=== PATIENT | male | born 1980 | race Caucasian/White ===

== ENCOUNTER 2022-03-05 15:19 | Emergency (ER) | payer MEDICARE, SELFPAY ==
--- NOTE | ~2022-03-05 | XR_ITS ---
EXAMINATION: XR chest 2V 03/05/2022 16:17 INDICATION: Cough and weakness PROCEDURE: 2 view chest COMPARISON: 08/28/2014 FINDINGS: The lungs are clear. The cardiomediastinal silhouette is within normal limits. There are no pleural effusions. There is no pneumothorax suspected. IMPRESSION: 1: NO ACUTE CARDIOPULMONARY DISEASE. Reviewed, dictated and finalized at location A. [facility]
[2022-03-05 15:19] VITALS: BP 128/98; PULSE 86; RESP 18; TEMP 36.6; O2SAT 100
[2022-03-05] MEDS: ONDANSETRON INJ 4 MG/2 ML VIAL IV PUSH (15:47)
[2022-03-05] MEDS: SODIUM CHLORIDE 0.9% IV 1,000 ML 999 ML IV CONT (15:47)
--- NOTE | 2022-03-05 15:55 | ECG_ITS ---
Measurements Intervals [place] Rate: 70 P: 55 [place]: 152 QRS: 20 QRSD: 98 T: 25 QT: 383 QTc: 415 Interpretive Statements SINUS RHYTHM DELAYED PRECORDIAL R/S TRANSITION LOW QRS VOLTAGE IN PRECORDIAL LEADS BASELINE ARTIFACT- I, II, III, AVR BORDERLINE ECG NO PREVIOUS ECG AVAILABLE FOR COMPARISON Electronically Signed On 03-05-2022 20:22:39 BLOOD DONOR RECRUITER SUPERVISOR by Marques Barahona D.O.
[2022-03-05 15:57] LABS: Basophils Absolute Auto 0.1 K/mm3 (0.0-0.1); Basophils Percent Auto 0.5 % (0.2-1.2); Eosinophils Absolute Auto 0.2 K/mm3 (0-0.3); Eosinophils Percent Auto 1.1 % (0-4.4); Hematocrit 47.3 % (42.0-52.0); Hemoglobin 15.8 g/dL (14.0-18.0); Immature Granulocyte Absolute 0.06 K/mm3 (0.00-0.031); Immature Granulocyte Percent A 0.4 % (0-0.5); Lymphocytes Absolute Auto 0.86 K/mm3 (0.9-3.2); Lymphocytes Percent Auto 6.2 % (18.3-44.2); Mean Corpuscular HGB Conc 33.4 g/dl (32-36); Mean Corpuscular Hemoglobin 27.3 pg (26-34); Mean Corpuscular Volume 81.7 fl (80-100); Monocytes Absolute Auto 0.7 K/mm3 (0.1-0.6); Neutrophils Percent Auto 86.8 % (45.5-73.1); Platelet Count Result 253 k/mm3 (150-375); Red Blood Count 5.79 M/mm3 (4.6-6.20); Red Cell Distribution Width 13.9 % (11.5-14.5); White Blood Count 13.8 K/mm3 (4.5-10.0)
--- NOTE | 2022-03-05 15:58 | ED.NAVMDI ---
HPI - Nausea/Vomiting/Diarrhea General Chief complaint: Nausea/Vomiting/Diarrhea Stated complaint: flu sx Time Seen by Provider: 03/05/22 15:25 History of Present Illness HPI Narrative: 42 y/o M reports for lightheadedness x1 day, diarrhea 5 days ago, and cough for 1 week. Pt reports subjective fevers. States he went to a local urgent care earlier today to get evaluated, and while standing for the CXR, he became lightheaded and had to sit on the floor. Pt reports urgent care advised him to come to the ED. States his COVID and flu tests were negative at urgent care. States he has not had diarrhea in 4 days. Denies abdominal pain, CP, urinary complaints. Related Data Allergies Allergy/AdvReac Type Severity Reaction Status Date / Time cephalexin Allergy Severe Rash Verified 03/05/22 15:48 Course Vital Signs Vital signs: Vital Signs Temperature 97.8 F 03/05/22 15:19 Pulse Rate 86 03/05/22 15:19 Respiratory Rate 18 03/05/22 15:19 Blood Pressure 128/98 H 03/05/22 15:19 Pulse Oximetry 100 03/05/22 15:19 Oxygen Delivery Room Air 03/05/22 15:19 Temperature 97.8 F 03/05/22 15:19 Pulse Rate 86 03/05/22 15:19 Respiratory Rate 18 03/05/22 15:19 Blood Pressure 128/98 H 03/05/22 15:19 Pulse Oximetry 100 03/05/22 15:19 Oxygen Delivery Room Air 03/05/22 15:19 MDM - Nausea/Vomiting/Diarrhea Lab Data 03/05/22 15:49 03/05/22 15:49 Labs: Lab Results 03/05/22 03/05/22 Range/Units 15:49 15:49 WBC Pending RBC Pending Hgb Pending Hct Pending MCV Pending MCH Pending MCHC Pending RDW Pending Plt Count Pending MPV Pending Immature Gran % (Auto) Pending Neut % (Auto) Pending Lymph % (Auto) Pending [place] % (Auto) Pending Eos % (Auto) Pending Baso % (Auto) Pending Lymph # (Auto) Pending [place] # (Auto) Pending Eos # (Auto) Pending Baso # (Auto) Pending Abs Immat Gran (auto) Pending Absolute Neuts (auto) Pending Absolute Nucleated RBC Pending Nucleated RBC % Pending Sodium Pending Potassium Pending Chloride Pending Carbon Dioxide Pending Anion Gap Pending BUN Pending Creatinine Pending Estim Creat Clear Calc Pending Estimated GFR Pending Glucose Pending Calcium Pending Total Bilirubin Pending AST Pending ALT Pending Alkaline Phosphatase Pending Total Protein Pending Albumin Pending Lipase Pending Discharge Plan Discharge Follow-up/Referrals: PHYSICIAN,COMMERCIAL COLLECTOR [Primary Care Provider] -
[2022-03-05 16:04] LABS: Alanine Aminotransferase 30 U/L (6-50); Albumin Level 4.1 g/dL (3.5-5.1); Alkaline Phosphatase 79 U/L (38-126); Anion Gap 7 mmol/L (8-16); Aspartate Amino Transferase 22 U/L (17-59); Bilirubin,Total 0.6 mg/dL (0.2-1.3); Blood Urea Nitrogen 17 mg/dL (9-20); Calcium 8.3 mg/dL (8.4-10.2); Carbon Dioxide 27 mmol/L (22-30); Chloride 102 mmol/L (98-107); Estimated CRCL calculation 79 ml/min; Estimated Glomerular Filt Rate > 60; Glucose 134 mg/dL (65-110); Lipase 120 U/L (23-300); Potassium 4.5 mmol/L (3.4-5.0); Sodium 136 mmol/L (137-145)
--- NOTE | 2022-03-05 17:49 | ED.NAVMDI ---
HPI - Nausea/Vomiting/Diarrhea General Chief complaint: Nausea/Vomiting/Diarrhea Stated complaint: flu sx Time Seen by Provider: 03/05/22 15:25 History of Present Illness HPI Narrative: 42-year-old male presents to the emergency room today for complaints of flulike symptoms for the past week. He has had pretty significant cough and chest congestion. He reports feeling very weak and fatigued over the past week. He went to an urgent care today and when he was in x-ray he started to get very lightheaded and lowered himself to the floor. He did not pass out all the way. He had diarrhea at the beginning of the illness last week. He has not had any vomiting but he did have dry heaves earlier today. He does admit to having poor p.o. intake since this began. No chest pain or palpitations. Denies abdominal pain. Related Data Allergies Allergy/AdvReac Type Severity Reaction Status Date / Time cephalexin Allergy Severe Rash Verified 03/05/22 15:48 Review of Systems Review of Systems: CONSTITUTIONAL: Denies fever, chills, or sweats. reports fatigue EYES: Denies visual changes, redness, or discharge. ENT: Denies rhinorrhea, congestion, sore throat, or otalgia. CARDIOVASCULAR: Denies chest pain, palpitations, or edema. RESPIRATORY: Frequent cough, no wheezing or shortness of breath GASTROINTESTINAL: as per HPI GENITOURINARY: Denies dysuria or hematuria. SKIN: Denies rash or itching. MUSCULOSKELETAL: Denies back pain, joint pain, or myalgia. NEUROLOGIC: Denies headache, numbness, dizziness, or weakness. PSYCHIATRIC: Denies anxiety or depression. Exam Narrative: GENERAL: Well-appearing, well-nourished, and in no acute distress. HEAD: Normocephalic, atraumatic. EYES: SHAILESH and EOMI. NECK: Supple. No adenopathy or masses. No carotid bruits or JVD CHEST: Clear to auscultation. No respiratory distress. No wheezes rales or rhonchi HEART: Regular rate and rhythm. No murmur heard. Normal peripheral pulses. ABDOMEN: Soft, nontender, nondistended, normal active bowel sounds. EXTREMITIES: Normal range of motion. No edema. SKIN: Warm, dry, no rash. NEURO: No focal deficits. Alert and oriented x3. PSYCH: Normal mood and affect. Course Vital Signs Vital signs: Vital Signs Temperature 36.6 C 03/05/22 15:19 Pulse Rate 86 03/05/22 15:19 Respiratory Rate 18 03/05/22 15:19 Blood Pressure 128/98 H 03/05/22 15:19 Pulse Oximetry 100 03/05/22 15:19 Oxygen Delivery Room Air 03/05/22 15:19 Temperature 36.6 C 03/05/22 15:19 Pulse Rate 86 03/05/22 15:19 Respiratory Rate 18 03/05/22 15:19 Blood Pressure 128/98 H 03/05/22 15:19 Pulse Oximetry 100 03/05/22 15:19 Oxygen Delivery Room Air 03/05/22 15:19 MDM - Nausea/Vomiting/Diarrhea Differential Diagnosis Differential diagnosis: Likely gastroenteritis, dehydration and other (vasovagal syncope, near syncope, dehydration, acute bronchitis, viral syndrome, pneumonia) Lab Data Attestation: I reviewed the patient's lab results. 03/05/22 15:49 03/05/22 15:49 Labs: Lab Results 03/05/22 03/05/22 03/05/22 Range/Units 15:49 15:49 18:37 WBC 13.8 H (4.5-10.0) K/mm3 RBC 5.79 (4.6-6.20) M/mm3 Hgb 15.8 (14.0-18.0) g/dL Hct 47.3 (42.0-52.0) % MCV 81.7 (80-100) fl MCH 27.3 (26-34) pg MCHC 33.4 (32-36) g/dl RDW 13.9 (11.5-14.5) % Plt Count 253 (150-375) k/mm3 MPV 9.0 (7.4-10.4) fl Immature Gran % (Auto) 0.4 (0-0.5) % Neut % (Auto) 86.8 H (45.5-73.1) % Lymph % (Auto) 6.2 L (18.3-44.2) % [place] % (Auto) 5.0 (2.6-8.5) % Eos % (Auto) 1.1 (0-4.4) % Baso % (Auto) 0.5 (0.2-1.2) % Lymph # (Auto) 0.86 L (0.9-3.2) K/mm3 [place] # (Auto) 0.7 H (0.1-0.6) K/mm3 Eos # (Auto) 0.2 (0-0.3) K/mm3 Baso # (Auto) 0.1 (0.0-0.1) K/mm3 Abs Immat Gran (auto) 0.06 H (0.00-0.031) K/mm3 Absolute Neuts (auto) 12.0 H (1.3-6.7) K/mm3 Absolute Nucleated RBC 0.0
[2022-03-05 18:58] VITALS: BP 142/84; PULSE 88; RESP 17; O2SAT 97
[2022-03-05 19:11] LABS: Appearance Urine Clear (Clear); Bilirubin Urine Negative (Negative); Blood Urine Negative (Negative); Color Urine Yellow (Yellow); Glucose Urine UA Negative (Negative); Ketones Urine Negative (Negative); Leukocyte Esterase Ur Negative LEU/UL (Negative); Nitrate Urine Negative (Negative); Protein Urine Negative (Negative); Urobilinogen Urine 0.2 mg/dL (<2.0); pH Urine 5.5 (5.0-9.0)
[2022-03-05 19:13] LABS: Add Urine Microscopic? NO
--- NOTE | 2022-03-19 14:58 | PC.NURSE ---
LATE ENTRY This note is being entered to document information to the patient's record. The following information was omitted on [03/05/22], by [Sydnee Arita RN]. Stop time for NS 1057
== END 2022-03-05 19:00 | disposition home or self-care (01) ==
PROVIDERS: Emergency Provider Nurse Practitioner Family
DX: J20.9 Acute bronchitis, unspecified (principal); R55 Syncope and collapse; R94.31 Abnormal electrocardiogram [ECG] [EKG]
CPT/HCPCS: 36415; 71046; 80053; 81003; 83690; 85025; 93005; 96361; 96374; 99284; J2405; J7030